=== PATIENT | male | born 1940 | race Caucasian/White ===

== ENCOUNTER → 2021-09-27 | Outpatient (CLI) | payer MEDICARE, BC, OTHER ==
[~2021-09-27] MED LIST: ALBU17IN INH; AMLO1TAB24 PO; ATAC32TA4 PO; AVOD0.5C PO; CELE100C PO; CELE1CAP4 PO; COUM1TAB17 PO; COUM2.5T17 PO; COUM7.5T PO; FLOM0.4C39 PO; LOFI134C PO; LYRI75CA PO; PERC2.5T PO; PERC7.5T12 PO; PERCOCET PO; PRIL20CA PO; PRIL20CA9 PO; RANI-397 PO; RANI1TAB17 PO; SYMB16INH INH; TYLE325T5 PO; VENTAER INH; [UNRECOGNIZED DRUG - CODE] PO
== END ==
LOC: M PLARAD 12:22
PROVIDERS: ATTEND Internal Medicine Pulmonary Disease
DX: R93.89 Abnormal findings on diagnostic imaging of other specified body structures (principal); R93.7 Abnormal findings on diagnostic imaging of other parts of musculoskeletal system; R91.1 Solitary pulmonary nodule
CPT/HCPCS: 78815; A9552

== ENCOUNTER 2022-02-20 03:21 | Inpatient (IN) | payer MEDICARE, BC, OTHER ==
[2022-02-20] VITALS (13 sets, daily range): BP systolic 56–139; BP diastolic 38–70
[~2022-02-20] VITALS: Ht 177.8 cm; Wt 101.5 kg
[2022-02-20] MEDS ORDERED: NS 1,000 ML IV SCH ×4 (07:15→14:00)
[2022-02-20] MEDS ORDERED: SOD POLYSTYRENE SULFONATE SUSP 15GM 60ML UD PO ONE (07:30)
[2022-02-20] MEDS ORDERED: LOSA25TA13 PO (07:43)
[2022-02-20] MEDS ORDERED: LEVA45AE INH (07:43)
[2022-02-20] MEDS ORDERED: FINA5TAB2 PO (07:43)
[2022-02-20] MEDS ORDERED: FURO20TA2 PO (07:43)
[2022-02-20] MEDS ORDERED: TAMS1CAP17 PO (07:43)
[2022-02-20] MEDS ORDERED: CAND32TA4 PO (07:43)
[2022-02-20] MEDS ORDERED: METO1TAB32 PO (07:43)
[2022-02-20] MEDS ORDERED: PREG75CA2 PO (07:43)
[2022-02-20] MEDS ORDERED: OXYB5TAB10 PO (07:43)
[2022-02-20] MEDS ORDERED: HOME MED LIST COMPLETE! XX SCH (07:45)
[2022-02-20] MEDS ORDERED: XARE20TA PO (07:51)
[2022-02-20] MEDS ORDERED: LEVALBUTEROL HFA 45MCG/ACT 15 GM INHALER INH PRN (08:05)
[2022-02-20] MEDS ORDERED: METOPROLOL SUCC *XL* 25MG TAB (TopROL *XL*) PO SCH (09:00)
[2022-02-20] MEDS ORDERED: TAMSULOSIN 0.4 MG CAP PO SCH (09:00)
[2022-02-20] MEDS: SYMBICORT 160/4.5MCG INHALER 6GM INH SCH ×2 (09:50→20:55)
[2022-02-20 10:16] LABS: BASO # 0.1 10^3/uL (0.0-0.2); BASO % 0.5 % (0.0-1.0); EOS % 0.1 % (0.0-3.0); HEMATOCRIT 36.8 % (42.0-52.0); HEMOGLOBIN 11.7 g/dl (13.5-17.5); LYMPH # 0.6 10^3/uL (1.5-5.0); LYMPH % 4.5 % (24.0-44.0); MEAN CORPUSCULAR HEMOGLOBIN 33.9 pg (27.0-33.0); MEAN CORPUSCULAR HGB CONC 31.8 g/dl (32.0-36.5); MEAN CORPUSCULAR VOLUME 106.7 fl (80.0-96.0); MONO # 1.3 10^3/uL (0.0-0.8); MONO % 9.6 % (2.0-8.0); NEUTROPHILS # 11.8 10^3/uL (1.5-8.5); NEUTROPHILS % 84.7 % (36.0-66.0); PLATELET COUNT, AUTOMATED 161 10^3/uL (150-450); RED BLOOD COUNT 3.45 10^6/uL (4.30-6.10); WHITE BLOOD COUNT 13.9 10^3/uL (4.0-10.0)
[2022-02-20 10:48] LABS: CK-MB VALUE MASS 14.4 NG/ML (<3.6); MB/CK RELATIVE INDEX 2.5 (< OR =4)
[2022-02-20 10:53] LABS: CALCIUM LEVEL 8.7 MG/DL (8.8-10.2); CREATININE FOR GFR 1.78 MG/DL (0.70-1.30); GLOMERULAR FILTRATION RATE 39.1 (>35); POTASSIUM SERUM 4.5 MEQ/L (3.5-5.1)
[2022-02-20 10:54] LABS: ALBUMIN 3.5 GM/DL (3.2-5.2); MAGNESIUM LEVEL 2.1 MG/DL (1.8-2.4); THYROID STIMULATING HORMONE 0.734 uIU/ML (0.358-3.740); TOTAL PROTEIN 6.8 GM/DL (6.4-8.2)
[2022-02-20] MEDS: PREGABALIN 75 MG CAP(LYRICA) PO SCH ×2 (10:54→21:56)
[2022-02-20] MEDS: FINASTERIDE 5MG TAB PO SCH (10:55)
[2022-02-20] MEDS ORDERED: NS 1,000 ML IV ONE ×4 (12:25→17:00)
[2022-02-20] MEDS ORDERED: CALCIUM GLUCONATE 1,000 MG in D5W MINI-BAG PLUS 100 ML IV ONE (13:00)
[2022-02-20] MEDS ORDERED: RIVAROXABAN 15MG TAB (XARELTO) PO SCH (13:00)
[2022-02-20 13:40] LABS: C REACTIVE PROTEIN QUANTITATIV 6.32 MG/DL (0.00-0.30)
[2022-02-20 13:59] LABS: ERYTHROCYTE SEDIMENTATION RATE 39 mm/hr (0-20)
[2022-02-20] MEDS: PIPERACILLIN/TAZOBACTAM SOD 3.375 GM in D5W MINI-BAG PLUS 50 ML IV SCH ×2 (15:53→21:56)
[2022-02-20] MEDS ORDERED: MIDODRINE 5 MG TAB PO ONE (16:00)
[2022-02-20] MEDS ORDERED: MIDODRINE 5 MG TAB PO SCH (16:00)
[2022-02-20] MEDS ORDERED: ACETAMINOPHEN 500 MG TAB PO ONE (16:00)
[2022-02-20] MEDS: NS 1,000 ML IV SCH (19:33)
[2022-02-20] MEDS ORDERED: cefTRIAXone SOD 1 GM in D5W MINI-BAG PLUS 50 ML IV SCH (21:00)
[2022-02-20] MEDS ORDERED: SODIUM CHLORIDE 0.9% 1000ML IV ONE (22:35)
[2022-02-20 23:51] LABS: BLOOD UREA NITROGEN 50 MG/DL (7-18); CALCIUM LEVEL 8.3 MG/DL (8.8-10.2); CARBON DIOXIDE LEVEL 21 MEQ/L (21-32); CHLORIDE LEVEL 115 MEQ/L (98-107); CREATININE FOR GFR 1.11 MG/DL (0.70-1.30); GLOMERULAR FILTRATION RATE > 60.0 (>35); GLUCOSE, FASTING 137 MG/DL (70-100); POTASSIUM SERUM 3.8 MEQ/L (3.5-5.1); SODIUM LEVEL 142 MEQ/L (136-145)
[2022-02-20 23:56] LABS: APPEARANCE, URINE MANUAL CLEAR (CLEAR); COLOR, URINE MANUAL YELLOW (YELLOW)
[2022-02-20 23:57] LABS: BILIRUBIN, URINE MANUAL NEGATIVE (NEGATIVE); BLOOD URINE MANUAL POSITIVE (NEGATIVE); GLUCOSE, URINE (UA) MANUAL NEGATIVE (NEGATIVE); KETONE, URINE MANUAL NEGATIVE (NEGATIVE); NITRITE, URINE MANUAL NEGATIVE (NEGATIVE); PROTEIN, URINE MANUAL NEGATIVE (NEGATIVE); SPECIFIC GRAVITY,URINE MANUAL 1.015 (1.002-1.035); UROBILINOGEN, URINE MANUAL NORMAL (NORMAL)
[2022-02-20 23:58] LABS: LEUKOCYTE ESTERASE, URINE MAN TRACE (NEGATIVE)
[2022-02-21 00:05] LABS: AMORPHOUS SEDIMENT, URINE SMALL AMOUNT (NEGATIVE); BACTERIA, URINE 0; HYALINE CAST, URINE NONE SEEN /lpf (0-1); SQUAMOUS EPITHELIAL CELL URINE SMALL AMOUNT /hpf (SMALL AMT); TRANSITIONAL EPI CELLS, URINE SMALL AMOUNT /hpf; YEAST, URINE SMALL AMOUNT
[2022-02-21] MEDS ORDERED: KETOROLAC 30 MG/ML 1ML VIAL IV ONE (00:10)
[2022-02-21 00:11] VITALS: BP 112/56
[2022-02-21] MEDS: NS 1,000 ML IV SCH (02:34)
[2022-02-21] MEDS: PIPERACILLIN/TAZOBACTAM SOD 3.375 GM in D5W MINI-BAG PLUS 50 ML IV SCH (04:40)
[2022-02-21 04:45] VITALS: BP 128/73
[2022-02-21] MEDS: PERCOCET 5MG/325MG TAB PO PRN ×2 (04:58→12:22)
[2022-02-21 05:24] LABS: BASO # 0.1 10^3/uL (0.0-0.2); EOS % 0.3 % (0.0-3.0); HEMATOCRIT 31.9 % (42.0-52.0); HEMOGLOBIN 9.8 g/dl (13.5-17.5); LYMPH # 0.9 10^3/uL (1.5-5.0); LYMPH % 9.7 % (24.0-44.0); MEAN CORPUSCULAR HEMOGLOBIN 33.7 pg (27.0-33.0); MEAN CORPUSCULAR HGB CONC 30.7 g/dl (32.0-36.5); MEAN CORPUSCULAR VOLUME 109.6 fl (80.0-96.0); MONO # 1.1 10^3/uL (0.0-0.8); MONO % 12.1 % (2.0-8.0); NEUTROPHILS # 6.7 10^3/uL (1.5-8.5); NEUTROPHILS % 76.3 % (36.0-66.0); PLATELET COUNT, AUTOMATED 154 10^3/uL (150-450); RED BLOOD COUNT 2.91 10^6/uL (4.30-6.10); WHITE BLOOD COUNT 8.8 10^3/uL (4.0-10.0)
[2022-02-21 05:53] LABS: ALBUMIN 2.9 GM/DL (3.2-5.2); BLOOD UREA NITROGEN 44 MG/DL (7-18); CALCIUM LEVEL 8.4 MG/DL (8.8-10.2); CARBON DIOXIDE LEVEL 19 MEQ/L (21-32); CHLORIDE LEVEL 114 MEQ/L (98-107); CREATININE FOR GFR 1.05 MG/DL (0.70-1.30); GLOMERULAR FILTRATION RATE > 60.0 (>35); GLUCOSE, FASTING 98 MG/DL (70-100); MAGNESIUM LEVEL 1.7 MG/DL (1.8-2.4); POTASSIUM SERUM 4.3 MEQ/L (3.5-5.1); SODIUM LEVEL 139 MEQ/L (136-145)
[2022-02-21 08:00] VITALS: BP 134/74
[2022-02-21] MEDS ORDERED: MAG SULF 1GM/100ML (MAG RUN) 1 GM in IV 1 EA IV ONE (08:00)
[2022-02-21] MEDS ORDERED: METO1TAB87 PO (08:08)
[2022-02-21] MEDS ORDERED: SELF1KIT MC (08:08)
[2022-02-21 08:29] VITALS: BP 84/62
[2022-02-21] MEDS: PREGABALIN 75 MG CAP(LYRICA) PO SCH (08:47)
[2022-02-21] MEDS: FINASTERIDE 5MG TAB PO SCH (08:47)
[2022-02-21] MEDS: SYMBICORT 160/4.5MCG INHALER 6GM INH SCH (09:10)
[2022-02-21 12:10] VITALS: BP 127/77
[2022-02-21 12:22] VITALS: BP 127/77
[2022-02-21] MEDS ORDERED: ACETAMINOPH W/CODEINE #3 TAB UD PO ONE (13:15)
[2022-02-21] MEDS ORDERED: HYDROMORPHONE HCL 0.5 MG/ 0.5 ML SYRINGE (J1170 PER 1) IV ONE (13:15)
[2022-02-21] MEDS ORDERED: HYDR-3713 PO (13:17)
[2022-02-21] MEDS ORDERED: SENO8.6T10 PO (13:18)
[2022-02-21] MEDS ORDERED: SODI650T PO (13:21)
[2022-02-21] MEDS ORDERED: ACETAMINOPHEN 500 MG TAB PO ONE (13:45)
[2022-02-21] MEDS ORDERED: SODIUM BICARBONATE 325 MG TAB PO ONE (15:00)
== END 2022-02-21 14:51 | disposition home or self-care (01) | DRG 683 ==
LOC: M MS5PR 04:44 → M PCU 08:08
PROVIDERS: ADMIT Internal Medicine; ATTEND General Practice
DX: N17.9 Acute kidney failure, unspecified (principal); B37.49 Other urogenital candidiasis; S52.572A Other intraarticular fracture of lower end of left radius, initial encounter for closed fracture; I48.91 Unspecified atrial fibrillation; N20.0 Calculus of kidney; N28.1 Cyst of kidney, acquired; K76.0 Fatty (change of) liver, not elsewhere classified; K44.9 Diaphragmatic hernia without obstruction or gangrene; M15.0 Primary generalized (osteo)arthritis; M48.061 Spinal stenosis, lumbar region without neurogenic claudication; R33.9 Retention of urine, unspecified; N10 Acute pyelonephritis; I10 Essential (primary) hypertension; N35.919 Unspecified urethral stricture, male, unspecified site; K21.9 Gastro-esophageal reflux disease without esophagitis; J45.909 Unspecified asthma, uncomplicated; M51.26 Other intervertebral disc displacement, lumbar region; E87.5 Hyperkalemia; N40.1 Benign prostatic hyperplasia with lower urinary tract symptoms; Z85.038 Personal history of other malignant neoplasm of large intestine; Z96.642 Presence of left artificial hip joint; Z96.651 Presence of right artificial knee joint; W18.30XA Fall on same level, unspecified, initial encounter; Y93.H9 Activity, other involving exterior property and land maintenance, building and construction; Y92.017 Garden or yard in single-family (private) house as the place of occurrence of the external cause; Y99.8 Other external cause status; Z79.899 Other long term (current) drug therapy

== ENCOUNTER → 2022-09-12 | Outpatient (CLI) | payer MEDICARE, BC, OTHER ==
[~2022-09-12] MED LIST changes: +ATOR80TA59 PO; +CAND32TA4 PO; +CLOP75TA2 PO; +FINA5TAB2 PO; +FURO20TA2 PO; +FURO40TA2 PO; +HYDR-3713 PO; +LEVA45AE INH; +LOPR1TAB6 PO; +LOSA25TA13 PO; +METO1TAB32 PO; +METO1TAB87 PO; +OXYB5TAB10 PO; +PREG100C PO; +PREG75CA2 PO; +SELF1KIT MC; +SENO8.6T10 PO; +SODI650T PO; +TAMS1CAP17 PO; +XARE15TA PO; +XARE20TA PO
== END ==
LOC: M LABSMTC 08:03
PROVIDERS: ATTEND Anesthesiology
DX: Z01.818 Encounter for other preprocedural examination (principal); Z11.52 Encounter for screening for COVID-19

== ENCOUNTER → 2022-09-14 | Day surgery (SDC) | payer MEDICARE, BC, OTHER ==
[~2022-09-14] VITALS: Ht 177.8 cm; Wt 104.3 kg
[~2022-09-14] MED LIST changes: +BSS IRRIG/VANCO(10MG)/TOBRA(5MG)/EPINEPH(1:1000-0.5CC)500ML BAG-ORONLY IR ONE; +CEFUROXIME 1MG/0.1ML INTRACAMERAL INJ As Ordered ONE; +CYCLOPENTOLATE 1% OPHTH SOLN 2ML BTL OD SCH; +LIDOCAINE 1% SDV 5ML VIAL As Ordered ONE; +LIDOCAINE 3.5 % 1ML OPHTH TOPICAL GEL OU ONE; +MIDAZOLAM INJ 2MG/2ML VIAL As Ordered ONE; +OFLOXACIN 0.3 % (OCUFLOX) OPTH SOL 5ML OD ONE; +PHENYLEPHRINE 10% OPHTH SOL 5ML OD PRN; +PHENYLEPHRINE 2.5% OPHTH SOL 2ML OD SCH; +TROPICAMIDE 1% OPHTH SOLN 15ML OD SCH; +fentaNYL 100 MCG/2 ML INJECTION As Ordered ONE
[2022-09-14 12:00] VITALS: BP 117/74
== END | disposition home or self-care (01) ==
LOC: M SDC 09:07
PROVIDERS: ATTEND Ophthalmology
DX: H25.11 Age-related nuclear cataract, right eye (principal); R94.31 Abnormal electrocardiogram [ECG] [EKG]; I11.0 Hypertensive heart disease with heart failure; I50.9 Heart failure, unspecified; E78.00 Pure hypercholesterolemia, unspecified; N32.81 Overactive bladder; M19.90 Unspecified osteoarthritis, unspecified site; G62.9 Polyneuropathy, unspecified; J44.9 Chronic obstructive pulmonary disease, unspecified; G47.30 Sleep apnea, unspecified; N40.0 Benign prostatic hyperplasia without lower urinary tract symptoms; F17.220 Nicotine dependence, chewing tobacco, uncomplicated; Z79.899 Other long term (current) drug therapy; Z79.01 Long term (current) use of anticoagulants; Z79.51 Long term (current) use of inhaled steroids
CPT/HCPCS: 66984; J0697; J2250; J3010; V2632

== ENCOUNTER → 2022-09-23 | Outpatient (CLI) | payer MEDICARE, BC, OTHER ==
[~2022-09-23] MED LIST changes: -BSS IRRIG/VANCO(10MG)/TOBRA(5MG)/EPINEPH(1:1000-0.5CC)500ML BAG-ORONLY IR ONE; -CEFUROXIME 1MG/0.1ML INTRACAMERAL INJ As Ordered ONE; -CYCLOPENTOLATE 1% OPHTH SOLN 2ML BTL OD SCH; -LIDOCAINE 1% SDV 5ML VIAL As Ordered ONE; -LIDOCAINE 3.5 % 1ML OPHTH TOPICAL GEL OU ONE; -MIDAZOLAM INJ 2MG/2ML VIAL As Ordered ONE; -OFLOXACIN 0.3 % (OCUFLOX) OPTH SOL 5ML OD ONE; -PHENYLEPHRINE 10% OPHTH SOL 5ML OD PRN; -PHENYLEPHRINE 2.5% OPHTH SOL 2ML OD SCH; -TROPICAMIDE 1% OPHTH SOLN 15ML OD SCH; -fentaNYL 100 MCG/2 ML INJECTION As Ordered ONE
== END ==
LOC: M LABSMTC 08:07
PROVIDERS: ATTEND Anesthesiology
DX: Z01.818 Encounter for other preprocedural examination (principal); Z11.52 Encounter for screening for COVID-19

== ENCOUNTER 2022-09-28 06:19 | Day surgery (SDC) | payer MEDICARE, BC, OTHER ==
[~2022-09-28] VITALS: Ht 180.3 cm; Wt 102.5 kg
[~2022-09-28 06:19] MED LIST changes: +BSS IRRIG/VANCO(10MG)/TOBRA(5MG)/EPINEPH(1:1000-0.5CC)500ML BAG-ORONLY IR ONE; +CYCLOPENTOLATE 1% OPHTH SOLN 2ML BTL OS SCH; +LIDOCAINE 3.5 % 1ML OPHTH TOPICAL GEL OU ONE; +OFLOXACIN 0.3 % (OCUFLOX) OPTH SOL 5ML OS ONE; +PHENYLEPHRINE 10% OPHTH SOL 5ML OS PRN; +PHENYLEPHRINE 2.5% OPHTH SOL 2ML OS SCH; +TROPICAMIDE 1% OPHTH SOLN 15ML OS SCH
[2022-09-28] MEDS ORDERED: LIDOCAINE 1% SDV 5ML VIAL As Ordered ONE (06:45)
[2022-09-28] MEDS ORDERED: CEFUROXIME 1MG/0.1ML INTRACAMERAL INJ As Ordered ONE (06:46)
[2022-09-28] MEDS ORDERED: fentaNYL 100 MCG/2 ML INJECTION As Ordered ONE (09:13)
[2022-09-28] MEDS ORDERED: MIDAZOLAM INJ 2MG/2ML VIAL As Ordered ONE (09:13)
[2022-09-28 09:29] VITALS: BP 131/79
== END 2022-09-28 09:34 | disposition home or self-care (01) ==
LOC: M SDC 06:19
PROVIDERS: ATTEND Ophthalmology
DX: H25.12 Age-related nuclear cataract, left eye (principal); H57.03 Miosis; I48.91 Unspecified atrial fibrillation; I11.0 Hypertensive heart disease with heart failure; I50.9 Heart failure, unspecified; G47.30 Sleep apnea, unspecified; J45.909 Unspecified asthma, uncomplicated; J44.9 Chronic obstructive pulmonary disease, unspecified; C61 Malignant neoplasm of prostate; F17.220 Nicotine dependence, chewing tobacco, uncomplicated; Z79.899 Other long term (current) drug therapy; Z79.51 Long term (current) use of inhaled steroids
CPT/HCPCS: 66982; J0697; J2250; J3010; V2632

== ENCOUNTER → 2022-12-16 | Outpatient (CLI) | payer MEDICARE ==
[~2022-12-16] MED LIST changes: -BSS IRRIG/VANCO(10MG)/TOBRA(5MG)/EPINEPH(1:1000-0.5CC)500ML BAG-ORONLY IR ONE; -CYCLOPENTOLATE 1% OPHTH SOLN 2ML BTL OS SCH; -LIDOCAINE 3.5 % 1ML OPHTH TOPICAL GEL OU ONE; -OFLOXACIN 0.3 % (OCUFLOX) OPTH SOL 5ML OS ONE; -PHENYLEPHRINE 10% OPHTH SOL 5ML OS PRN; -PHENYLEPHRINE 2.5% OPHTH SOL 2ML OS SCH; -TROPICAMIDE 1% OPHTH SOLN 15ML OS SCH
== END ==
LOC: M PAIN 13:00
PROVIDERS: ATTEND Nurse Practitioner Family
DX: M51.16 Intervertebral disc disorders with radiculopathy, lumbar region (principal); J45.909 Unspecified asthma, uncomplicated; E78.00 Pure hypercholesterolemia, unspecified; R03.0 Elevated blood-pressure reading, without diagnosis of hypertension; J44.9 Chronic obstructive pulmonary disease, unspecified; F17.290 Nicotine dependence, other tobacco product, uncomplicated; Z79.899 Other long term (current) drug therapy

== ENCOUNTER → 2023-01-30 | Outpatient (CLI) | payer MEDICARE | LOC: M PAIN 16:30 | PROVIDERS: ATTEND Anesthesiology | DX: M48.062 Spinal stenosis, lumbar region with neurogenic claudication (principal); M43.06 Spondylolysis, lumbar region; G89.29 Other chronic pain; M54.50 Low back pain, unspecified; M79.661 Pain in right lower leg; J45.909 Unspecified asthma, uncomplicated; E78.00 Pure hypercholesterolemia, unspecified; J44.9 Chronic obstructive pulmonary disease, unspecified; F17.290 Nicotine dependence, other tobacco product, uncomplicated; Z79.899 Other long term (current) drug therapy ==

== ENCOUNTER → 2023-05-25 | Outpatient (CLI) | payer MEDICARE ==
[~2023-05-25] MED LIST changes: +ADVITAB PO; +AMOX875T2 PO; +BACI1TAB20 PO; +DOXY-444 PO; +ECOT81TA5 PO; +FAMO1TAB11; +ISOVUE-M 300 61% 15ML VIAL As Ordered ONE; +LIDOCAINE 1% SDV 30ML VIAL As Ordered ONE; +LOSA50TA28 PO; -OXYB5TAB10 PO; +OXYB5TAB11 PO; +PRED50TA PO; -PREG100C PO; +PREG100C2 PO; -PREG75CA2 PO; +PREG75CA3 PO; +diazePAM 5MG TABLET As Ordered ONE; +methylPREDNISolone SUSP 40MG/ML 1ML VIAL (DEPO MEDROL) As Ordered ONE; +oxyCODONE 5MG TAB As Ordered ONE
== END ==
LOC: M PAIN 12:45
PROVIDERS: ATTEND Anesthesiology
DX: M51.16 Intervertebral disc disorders with radiculopathy, lumbar region (principal); G89.29 Other chronic pain; F17.220 Nicotine dependence, chewing tobacco, uncomplicated; Z80.8 Family history of malignant neoplasm of other organs or systems; E66.01 Morbid (severe) obesity due to excess calories; Z68.41 Body mass index [BMI] 40.0-44.9, adult; Z79.899 Other long term (current) drug therapy
CPT/HCPCS: 62323; J1030; Q9967

== ENCOUNTER 2023-06-05 13:11 | Observation (INO) | payer MEDICARE ==
[~2023-06-05] VITALS: Ht 180.3 cm; Wt 106.5 kg
[~2023-06-05 13:11] MED LIST changes: -ADVITAB PO; -AMOX875T2 PO; -BACI1TAB20 PO; -DOXY-444 PO; -ECOT81TA5 PO; -FAMO1TAB11; -ISOVUE-M 300 61% 15ML VIAL As Ordered ONE; -LIDOCAINE 1% SDV 30ML VIAL As Ordered ONE; -LOSA50TA28 PO; -PRED50TA PO; +UNRESOLVED CLARIFICATION ENTRY XX SCH; -diazePAM 5MG TABLET As Ordered ONE; -methylPREDNISolone SUSP 40MG/ML 1ML VIAL (DEPO MEDROL) As Ordered ONE; -oxyCODONE 5MG TAB As Ordered ONE
[2023-06-05 13:42] LABS: BASO # 0.2 10^3/uL (0.0-0.2); BASO % 0.7 % (0.0-1.0); HEMATOCRIT 39.5 % (42.0-52.0); HEMOGLOBIN 13.1 g/dl (13.5-17.5); LYMPH # 0.8 10^3/uL (1.5-5.0); LYMPH % 3.3 % (24.0-44.0); MEAN CORPUSCULAR HEMOGLOBIN 31.5 pg (27.0-33.0); MEAN CORPUSCULAR HGB CONC 33.2 g/dl (32.0-36.5); MONO % 10.3 % (2.0-8.0); NEUTROPHILS # 19.8 10^3/uL (1.5-8.5); NEUTROPHILS % 85.1 % (36.0-66.0); PLATELET COUNT, AUTOMATED 232 10^3/uL (150-450); RED BLOOD COUNT 4.16 10^6/uL (4.30-6.10); WHITE BLOOD COUNT 23.3 10^3/uL (4.0-10.0)
[2023-06-05 14:12] LABS: ALBUMIN 3.8 G/DL (3.2-5.2); BILIRUBIN,DIRECT 0.8 MG/DL (<0.4); BILIRUBIN,TOTAL 1.8 MG/DL (0.3-1.2); CK-MB VALUE MASS 4.1 NG/ML (<3.6); MB/CK RELATIVE INDEX 3.5 (< OR =4); RSV AMPLIFICATION NEGATIVE (NEGATIVE); TOTAL PROTEIN 6.9 G/DL (5.7-8.2)
[2023-06-05 14:14] LABS: THYROID STIMULATING HORMONE 1.053 uIU/ML (0.55-4.78)
[2023-06-05] MEDS ORDERED: ECOT81TA5 PO (14:14)
[2023-06-05] MEDS ORDERED: FAMO1TAB11 (14:14)
[2023-06-05] MEDS ORDERED: ADVITAB PO (14:14)
[2023-06-05 14:23] LABS: MONO # 2.4 10^3/uL (0.0-0.8)
[2023-06-05] MEDS ORDERED: ACETAMINOPHEN 325 MG TAB PO ONE (15:00)
[2023-06-05] MEDS ORDERED: PIPERACILLIN/TAZOBACTAM SOD 4.5 GM in D5W MINI-BAG PLUS 50 ML IV ONE (15:00)
[2023-06-05] MEDS ORDERED: ISOVUE-370 76% 100ML VIAL As Ordered ONE (15:00)
[2023-06-05] MEDS ORDERED: NS 1,000 ML IV ONE (15:00)
[2023-06-05] MEDS ORDERED: MED REC IN PROGRESS XX SCH (16:50)
[2023-06-05] MEDS ORDERED: IPRATROPIUM 0.5MG/ALBUTEROL 2.5MG INH SOL UD 3ML (DUONEB) NEB PRN (16:50)
[2023-06-05] MEDS: DOXYCYCLINE HYCLATE 100 MG in D5W MINI-BAG PLUS 100 ML IV SCH (16:50)
[2023-06-05] MEDS ORDERED: LOSA50TA28 PO (17:03)
[2023-06-05 17:09] LABS: C REACTIVE PROTEIN QUANTITATIV 4.6 MG/DL (<1.0)
[2023-06-05 17:19] LABS: PROCALCITONIN 0.1 ng/ml
[2023-06-05] MEDS ORDERED: HOME MED LIST COMPLETE! XX SCH (17:20)
[2023-06-05] MEDS: predniSONE 20 MG TAB PO SCH (18:07)
[2023-06-05 18:50] VITALS: BP 114/52; TEMP 98.1; O2SAT 95
[2023-06-05 20:00] VITALS: BP 120/55; TEMP 98.4; O2SAT 96
[2023-06-05] MEDS: PIPERACILLIN/TAZOBACTAM SOD 4.5 GM in D5W MINI-BAG PLUS 50 ML IV SCH (20:52)
[2023-06-05 20:59] VITALS: BP 118/55; O2SAT 95
[2023-06-05] MEDS ORDERED: VANCOMYCIN HCL 1 MG in IV FLUID PLACE HOLDER 1 EA IV SCH (21:45)
[2023-06-05] MEDS ORDERED: VANCOMYCIN HCL 1,000 MG, VIAL MATE ADAPTER 1 EACH in D5W 250 ML IV ONE ×2 (22:00→23:00)
[2023-06-06] MEDS: PIPERACILLIN/TAZOBACTAM SOD 4.5 GM in D5W MINI-BAG PLUS 50 ML IV SCH ×2 (02:20→08:05)
[2023-06-06 02:41] VITALS: BP 124/61; TEMP 98.4; O2SAT 96
[2023-06-06] MEDS ORDERED: ACETAMINOPHEN *IV* 1,000 MG in IV 1 EA IV ONE (03:00)
[2023-06-06] MEDS: IPRATROPIUM 0.5MG/ALBUTEROL 2.5MG INH SOL UD 3ML (DUONEB) NEB SCH ×2 (03:26→08:13)
[2023-06-06] MEDS: MAG SULF 1GM/100ML (MAG RUN) 100 ML IV SCH ×2 (03:34→04:36)
[2023-06-06] MEDS: DOXYCYCLINE HYCLATE 100 MG in D5W MINI-BAG PLUS 100 ML IV SCH (05:42)
[2023-06-06 06:00] VITALS: BP 124/58; TEMP 98.8; O2SAT 94
[2023-06-06 06:29] LABS: HEMATOCRIT 35.1 % (42.0-52.0); HEMOGLOBIN 11.5 g/dl (13.5-17.5); MEAN CORPUSCULAR HEMOGLOBIN 30.9 pg (27.0-33.0); MEAN CORPUSCULAR HGB CONC 32.8 g/dl (32.0-36.5); MEAN CORPUSCULAR VOLUME 94.4 fl (80.0-96.0); PLATELET COUNT, AUTOMATED 209 10^3/uL (150-450); RED BLOOD COUNT 3.72 10^6/uL (4.30-6.10); WHITE BLOOD COUNT 19.6 10^3/uL (4.0-10.0)
[2023-06-06 07:01] LABS: PROCALCITONIN 0.18 ng/ml
[2023-06-06 07:03] LABS: ALBUMIN 3.3 G/DL (3.2-5.2); ALKALINE PHOSPHATASE 47 U/L (46-116); ALT/SGPT 30 U/L (7.0-40); AST/SGOT 23 U/L (<34); BLOOD UREA NITROGEN 19 MG/DL (9-23); CALCIUM LEVEL 8.8 MG/DL (8.3-10.6); CARBON DIOXIDE LEVEL 21 MMOL/L (20-31); CHLORIDE LEVEL 105 MMOL/L (98-107); CREATININE FOR GFR 0.89 MG/DL (0.70-1.30); GLOMERULAR FILTRATION RATE > 60.0 (>35); GLUCOSE, FASTING 129 MG/DL (74-106); SODIUM LEVEL 138 MMOL/L (136-145); TOTAL PROTEIN 6.2 G/DL (5.7-8.2)
[2023-06-06] MEDS: predniSONE 20 MG TAB PO SCH (08:06)
[2023-06-06] MEDS ORDERED: VANCOMYCIN HCL 1,000 MG, VIAL MATE ADAPTER 1 EACH in D5W 250 ML IV SCH (09:00)
[2023-06-06] MEDS ORDERED: ENOXAPARIN 40MG/0.4ML SYRINGE (J1650 PER 10MG) SC SCH (09:00)
[2023-06-06] MEDS ORDERED: AMOX875T2 PO (09:02)
[2023-06-06] MEDS ORDERED: DOXY-444 PO (09:02)
[2023-06-06] MEDS ORDERED: PRED50TA PO (09:02)
[2023-06-06] MEDS ORDERED: BACI1TAB20 PO (09:02)
[2023-06-06 10:00] VITALS: BP 142/54; TEMP 96.1; O2SAT 93
[2023-06-08 15:09] LABS: BODY FLUID CULTURE Not indicated. (.); LEGIONELLA ANTIGEN URINE Negative (Negative); ORGANISM ID Not indicated. (.); SPECIMEN SOURCE Urine (.); URINE STREP PNEUMONIAE ANTIGEN Negative (Negative)
== END 2023-06-06 11:19 | disposition home or self-care (01) ==
LOC: EDBD 13:11 → M ED 13:11 → M ED INP 16:30 → ENRESERV 17:25 → M MSPAV 19:00
PROVIDERS: ADMIT Internal Medicine; ATTEND Internal Medicine
DX: J18.9 Pneumonia, unspecified organism (principal); J44.1 Chronic obstructive pulmonary disease with (acute) exacerbation; R00.1 Bradycardia, unspecified; G47.30 Sleep apnea, unspecified; E78.5 Hyperlipidemia, unspecified; K21.9 Gastro-esophageal reflux disease without esophagitis; N40.0 Benign prostatic hyperplasia without lower urinary tract symptoms; I48.91 Unspecified atrial fibrillation; D72.829 Elevated white blood cell count, unspecified; R53.1 Weakness; Z66 Do not resuscitate; Z79.899 Other long term (current) drug therapy; Z79.01 Long term (current) use of anticoagulants; Z79.82 Long term (current) use of aspirin; Z79.51 Long term (current) use of inhaled steroids
CPT/HCPCS: 36415; 70450; 71046; 71275; 74177; 80047; 80053; 80076; 81000; 81015; 82550; 82553; 83605; 83735; 84145; 84443; 84484; 85025; 85027; 86140; 87040; 87088; 87449; 87486; 87581; 87631; 87633; 87641; 87798; 87899; 93005; 94640; 96365; 96366; 96367; 96368; 96376; 97161; 97165; 97530; 99285; G0378; J0131; J2543; J3370; J3475; J7512; Q9967

== ENCOUNTER → 2023-06-27 | Outpatient (CLI) | payer MEDICARE ==
[~2023-06-27] MED LIST changes: +ADVITAB PO; +AMOX875T2 PO; +BACI1TAB20 PO; +DOXY-444 PO; +ECOT81TA5 PO; +FAMO1TAB11; +LOSA50TA28 PO; +PRED50TA PO; -UNRESOLVED CLARIFICATION ENTRY XX SCH
== END ==
LOC: M PAIN 09:30
PROVIDERS: ATTEND Nurse Practitioner Family
DX: G89.29 Other chronic pain (principal); M51.16 Intervertebral disc disorders with radiculopathy, lumbar region; M48.00 Spinal stenosis, site unspecified; F17.290 Nicotine dependence, other tobacco product, uncomplicated; Z79.82 Long term (current) use of aspirin; Z79.899 Other long term (current) drug therapy

== ENCOUNTER → 2023-11-10 | Outpatient (CLI) | payer MEDICARE ==
[~2023-11-10] MED LIST changes: +DOXY-440 PO; -DOXY-444 PO; -OXYB5TAB11 PO; +OXYB5TAB14 PO
== END ==
LOC: M PAIN 16:30
PROVIDERS: ATTEND Nurse Practitioner Family
DX: M79.18 Myalgia, other site (principal); J45.909 Unspecified asthma, uncomplicated; E78.00 Pure hypercholesterolemia, unspecified; I48.0 Paroxysmal atrial fibrillation; R03.0 Elevated blood-pressure reading, without diagnosis of hypertension; Z79.82 Long term (current) use of aspirin; Z79.899 Other long term (current) drug therapy

== ENCOUNTER → 2024-01-02 | Outpatient (CLI) | payer MEDICARE, MEDICAID | LOC: M PAIN 09:45 | PROVIDERS: ATTEND Nurse Practitioner Family | DX: M51.16 Intervertebral disc disorders with radiculopathy, lumbar region (principal); G89.29 Other chronic pain; J45.909 Unspecified asthma, uncomplicated; E78.00 Pure hypercholesterolemia, unspecified; J44.9 Chronic obstructive pulmonary disease, unspecified; I48.0 Paroxysmal atrial fibrillation; R03.0 Elevated blood-pressure reading, without diagnosis of hypertension; F17.290 Nicotine dependence, other tobacco product, uncomplicated; Z79.82 Long term (current) use of aspirin; Z79.899 Other long term (current) drug therapy; Z79.01 Long term (current) use of anticoagulants ==

== ENCOUNTER → 2024-02-27 | Outpatient (CLI) | payer MEDICARE, MEDICAID ==
[~2024-02-27] MED LIST changes: +ISOVUE-M 300 61% 15ML VIAL As Ordered ONE; +LIDOCAINE 1% SDV 30ML VIAL As Ordered ONE; +dexAMETHasone 10MG/1ML VIAL PRES.FREE As Ordered ONE; +diazePAM 5MG TABLET As Ordered ONE
== END ==
LOC: M PAIN 12:30
PROVIDERS: ATTEND Anesthesiology
DX: M51.16 Intervertebral disc disorders with radiculopathy, lumbar region (principal); G89.29 Other chronic pain; J45.909 Unspecified asthma, uncomplicated; E78.00 Pure hypercholesterolemia, unspecified; R03.0 Elevated blood-pressure reading, without diagnosis of hypertension; J44.9 Chronic obstructive pulmonary disease, unspecified; I48.0 Paroxysmal atrial fibrillation; Z79.01 Long term (current) use of anticoagulants; Z79.899 Other long term (current) drug therapy; F17.290 Nicotine dependence, other tobacco product, uncomplicated
CPT/HCPCS: 64483; J0665; J1100; Q9967

== ENCOUNTER → 2024-03-29 | Outpatient (CLI) | payer MEDICARE, MEDICAID ==
[~2024-03-29] MED LIST changes: -ISOVUE-M 300 61% 15ML VIAL As Ordered ONE; -LIDOCAINE 1% SDV 30ML VIAL As Ordered ONE; -dexAMETHasone 10MG/1ML VIAL PRES.FREE As Ordered ONE; -diazePAM 5MG TABLET As Ordered ONE
== END ==
LOC: M PAIN 16:30
PROVIDERS: ATTEND Nurse Practitioner Family
DX: G89.29 Other chronic pain (principal); M51.16 Intervertebral disc disorders with radiculopathy, lumbar region; M46.1 Sacroiliitis, not elsewhere classified; J45.909 Unspecified asthma, uncomplicated; E78.00 Pure hypercholesterolemia, unspecified; J44.9 Chronic obstructive pulmonary disease, unspecified; I48.0 Paroxysmal atrial fibrillation; R03.0 Elevated blood-pressure reading, without diagnosis of hypertension; F17.290 Nicotine dependence, other tobacco product, uncomplicated; Z79.01 Long term (current) use of anticoagulants; Z79.899 Other long term (current) drug therapy; Z96.653 Presence of artificial knee joint, bilateral

== ENCOUNTER → 2024-05-02 | Outpatient (CLI) | payer MEDICARE, MEDICAID | LOC: M PAIN 10:45 | PROVIDERS: ATTEND Nurse Practitioner Family | DX: M48.00 Spinal stenosis, site unspecified (principal); G89.29 Other chronic pain; J45.909 Unspecified asthma, uncomplicated; E78.00 Pure hypercholesterolemia, unspecified; J44.9 Chronic obstructive pulmonary disease, unspecified; I48.0 Paroxysmal atrial fibrillation; F17.290 Nicotine dependence, other tobacco product, uncomplicated; Z79.01 Long term (current) use of anticoagulants; Z79.899 Other long term (current) drug therapy ==